=== PATIENT | female | born 1970 | race Caucasian/White ===

== ENCOUNTER 2016-04-27 21:14 | Emergency (ER) | payer BC, OTHER ==
[2016-04-27 21:36] VITALS: RESP 18
--- NOTE | 2016-04-27 22:57 | ED ---
ENT HPI - General Stated complaint: fever,head pain Time Seen by Provider: 04/27/16 22:07 Source: patient, RN notes reviewed Mode of arrival: ambulatory Limitations: no limitations - History of Present Illness Initial comments: Patient is a 45-year-old female with chief complaint of body aches, fever and chills and sinus congestion for approximately 2 days. She reports that her son was diagnosed with flu and she believes that she has it as well. She states that she has been taking Motrin Tylenol and had a dose of Motrin prior to arrival. She reports that she feels very weak and tired. She states that her also has had similar symptoms quite some time. She denies any nausea vomiting or abdominal pain. She denies any headache, changes in vision, chest pain or shortness of breath. - Related Data Previous Rx's Medication Instructions Recorded Orphenadrine [Norflex] 100 mg PO Q12H #20 tablet.er 05/01/15 methylPREDNISolone Dose Pack 4 mg PO DIRECTED #21 package 05/01/15 [Medrol Dose Pack] Benzonatate [Tessalon Perles] 100 mg PO TID PRN #15 capsule 04/27/16 Fluticasone Nasal [place] [Flonase 2 spr EA NOSTRIL DAILY #1 bottle 04/27/16 Nasal [place]] Guaifenesin/Dextromethorphan 1 each PO BID #20 tab.er.12h 04/27/16 [Mucinex Dm ER 1,200-60 mg Tab] Oseltamivir [Tamiflu] 75 mg PO Q12HR #10 cap 04/27/16 Allergies Allergy/AdvReac Type Severity Reaction Status Date / Time codeine Allergy Rash/Hives Verified 04/27/16 21:36 hydromorphone HCl Allergy Rapid Verified 04/27/16 21:36 [From Dilaudid] Heart Rate magnesium Allergy Rapid Verified 04/27/16 21:36 Heart Rate Review of Systems ROS Statement: Those systems with pertinent positive or pertinent negative responses have been documented in the HPI. ROS Other: All systems not noted in ROS Statement are negative. Past Medical History Past Medical History: Asthma History of Any Multi-Drug Resistant Organisms: None Reported Past Surgical History: Section, Tubal Ligation Past Psychological History: Anxiety Smoking Status: Never smoker Past Alcohol Use History: Occasional Past Drug Use History: None Reported General Exam - General Exam Comments Initial Comments: Patient is a 45-year-old well-appearing female. She does appear to have some sinus congestion and watery eyes. Limitations: no limitations General appearance: alert, in no apparent distress Head exam: Present: atraumatic, normocephalic, normal inspection Eye exam: Present: normal appearance, PERRL, EOMI. Absent: scleral icterus, conjunctival injection, periorbital swelling ENT exam: Present: normal exam, mucous membranes moist, TM's normal bilaterally , normal external ear exam. Absent: normal oropharynx (Erythematous oropharynx) Neck exam: Present: normal inspection. Absent: tenderness, meningismus, lymphadenopathy Respiratory exam: Present: normal lung sounds bilaterally. Absent: respiratory distress, wheezes, rales, rhonchi, stridor Cardiovascular Exam: Present: regular rate, normal rhythm, normal heart sounds. Absent: systolic murmur, diastolic murmur, rubs, gallop, clicks GI/Abdominal exam: Present: soft, normal bowel sounds. Absent: distended, tenderness, guarding, rebound, rigid Extremities exam: Present: normal inspection, full ROM, normal capillary refill. Absent: tenderness, pedal edema, joint swelling, calf tenderness Back exam: Present: normal inspection Neurological exam: Present: alert, oriented X3, CN II-XII intact Psychiatric exam: Present: normal affect, normal mood Skin exam: Present: warm, dry, intact, normal color. Absent: rash Course Vital Signs 04/27/16 04/27/16 21:31 22:58 Temperature 99.1 F 99.3 F Pulse Rate 98 78 Respiratory 18 18 Rate Blood Pressure 139/97 119/75 O2 Sat by Pulse 96 100 Oximetry Medical Decision Making - Medical Decision Making Patient is a 45-year-old FEMA 2 days of fevers and body aches. She has a history of sick contacts with her son having positive influenza. Influenza screen was ran on the patient and she is negative. Discussed that she needs to take decongestants and Motrin Tylenol for the next few days. The patient appears to have influenza. I will prescribe the patient Tamiflu, Tessalon Perles for cough, Flonase for nasal congestion as well as Mucinex. Patient is advised to take his medications as prescribed and to rest for the next 3 days. I discussed that she is follow-up with her primary care provider if symptoms continue to persist after the next week. Patient understands the treatment plan will comply. Return parameters were discussed. - Lab Data Lab Results 04/27/16 Range/Units 21:30 Influenza Type A RNA Not Detected (Not Detectd) Influenza Type B (PCR) Not Detected (Not Detectd) Disposition Clinical Impression: Viral syndrome, Upper respiratory infection Disposition: HOME SELF-CARE Condition: Good Instructions: Influenza (ED) Additional Instructions: Patient advised, increase fluids and to take prescriptions as directed. Return to emergency department if any alarming signs or symptoms occur. Prescriptions: Benzonatate [Tessalon Perles] 100 mg PO TID PRN #15 capsule PRN Reason: Cough Fluticasone Nasal [place] [Flonase Nasal [place]] 2 spr EA NOSTRIL DAILY #1 bottle Guaifenesin/Dextromethorphan [Mucinex Dm ER 1,200-60 mg Tab] 1 each PO BID #20 tab.er.12h Oseltamivir [Tamiflu] 75 mg PO Q12HR #10 cap Referrals: Gemrán Hall III, MD [Primary Care Provider] - 1-2 days Time of Disposition: 22:53
[2016-04-27 22:59] VITALS: BP 119/75; PULSE 78; TEMP 99.3
== END 2016-04-27 23:10 | disposition home or self-care (01) ==
LOC: EC 21:14
DX: J06.9 Acute upper respiratory infection, unspecified (principal); Z88.5 Allergy status to narcotic agent; Z88.8 Allergy status to other drugs, medicaments and biological substances
CPT/HCPCS: 87502; 99283

== ENCOUNTER 2016-10-12 18:45 | Emergency (ER) | payer OTHER ==
[2016-10-12] MEDS ORDERED: RX INFO: IV CONTRAST WAS GIVEN 1 EACH MISC MISCELLANE PRN (19:05)
[2016-10-12] MEDS ORDERED: SODIUM CHLORIDE 0.9% 500 ML IV ONE (19:06)
[2016-10-12 19:27] LABS: Basophils # (A) 0.1 k/uL (0-0.2); Basophils % (A) 1 %; CH 26.4; CHCM 30.9; Eosinophils # (A) 0.2 k/uL (0-0.7); Eosinophils % (A) 2 %; HCT 39.8 % (34.0-46.0); HGB 12.8 gm/dL (11.4-16.0); Hypochromasia Slight; Luc # (Auto) 0.17; Luc % (Auto) 2; Lymphocytes # (A) 2.5 k/uL (1.0-4.8); Lymphocytes % (A) 27 %; MCH 27.5 pg (25.0-35.0); MCHC 32.1 g/dL (31.0-37.0); MCV 85.7 fL (80.0-100.0); Mean Platelet Volume 6.8; Monocytes # (A) 0.4 k/uL (0-1.0); Monocytes % (A) 4 %; Neutrophils # (A) 6.2 k/uL (1.3-7.7); Neutrophils % (A) 65 %; RBC 4.65 m/uL (3.80-5.40); RDW 12.8 % (11.5-15.5); WBC 9.5 k/uL (3.8-10.6); WBC (Perox) 9.65
[2016-10-12 19:39] LABS: Amylase 42 U/L (30-110); Anion Gap 10 mmol/L; Blood Urea Nitrogen 11 mg/dL (7-17); Calcium 8.9 mg/dL (8.4-10.2); Carbon Dioxide 23 mmol/L (22-30); Chloride 107 mmol/L (98-107); Glucose 86 mg/dL (74-99); Non-African American GFR(MDRD) >60 (>60 ml/min/1.73 sqM); Sodium 140 mmol/L (137-145)
--- NOTE | 2016-10-12 19:47 | ED ---
ENT HPI - General Chief complaint: ENT Stated complaint: left side of face swollen/vertigo Time Seen by Provider: 10/12/16 18:59 Source: patient, RN notes reviewed Mode of arrival: ambulatory Limitations: no limitations - History of Present Illness Initial comments: 46-year-old female presents emergency Department chief complaint left-sided facial swelling, some facial pain. Patient states has been present over the last 3-4 days. Patient states she feels congested in her left sinus, left ear. She has pains on her left ear and in the left mandible region. She states it' s very tender swollen. She denies any dental pain, sore throat, cough or chest congestion. Denies any shortness of breath. Patient states she has no history of any disorders of the face. Denies any headache at this time. Patient denies fever or chills. - Related Data Home Medications Medication Instructions Recorded Confirmed Cetirizine HCl [Zyrtec] 10 mg PO DAILY 10/12/16 10/12/16 Ibuprofen [Motrin] 200 - 400 mg PO Q6HR PRN 10/12/16 10/12/16 Vitamin B Complex 1 cap PO DAILY 10/12/16 10/12/16 Vitamin C/Biotin [Hair, Skin and 2 tab PO DAILY 10/12/16 10/12/16 Nails] Previous Rx's Medication Instructions Recorded Amoxicillin/Potassium Clav 1 tab PO Q12HR #20 tab 10/12/16 [Augmentin 875-125 Tablet] Ibuprofen [Motrin] 600 mg PO Q8HR PRN #30 tab 10/12/16 Allergies Allergy/AdvReac Type Severity Reaction Status Date / Time codeine Allergy Rash/Hives Verified 10/12/16 19:01 hydromorphone HCl Allergy Rapid Verified 10/12/16 19:01 [From Dilaudid] Heart Rate magnesium Allergy Rapid Verified 10/12/16 19:01 Heart Rate Review of Systems ROS Statement: Those systems with pertinent positive or pertinent negative responses have been documented in the HPI. ROS Other: All systems not noted in ROS Statement are negative. Past Medical History Past Medical History: Asthma History of Any Multi-Drug Resistant Organisms: None Reported Past Surgical History: Section, Tubal Ligation Past Psychological History: Anxiety Smoking Status: Never smoker Past Alcohol Use History: Occasional Past Drug Use History: None Reported General Exam Limitations: no limitations General appearance: alert, in no apparent distress Head exam: Present: atraumatic, normocephalic, normal inspection Eye exam: Present: normal appearance, PERRL, EOMI. Absent: scleral icterus, conjunctival injection, periorbital swelling ENT exam: Present: normal oropharynx, mucous membranes moist, TM's normal bilaterally, normal external ear exam, other (Tenderness in the left preauricular region, left mandible angle with moderate swelling). Absent: normal exam Neck exam: Present: normal inspection, full ROM. Absent: tenderness, meningismus, lymphadenopathy Respiratory exam: Present: normal lung sounds bilaterally. Absent: respiratory distress, wheezes, rales, rhonchi, stridor Cardiovascular Exam: Present: regular rate, normal rhythm, normal heart sounds. Absent: systolic murmur, diastolic murmur, rubs, gallop, clicks Neurological exam: Present: alert, oriented X3, CN II-XII intact, reflexes normal. Absent: motor sensory deficit Skin exam: Present: warm, dry, intact, normal color. Absent: rash Course Vital Signs 10/12/16 10/12/16 18:55 20:15 Temperature 99.3 F Pulse Rate 82 74 Respiratory 20 18 Rate Blood Pressure 138/79 138/64 O2 Sat by Pulse 100 99 Oximetry Medical Decision Making - Medical Decision Making 46-year-old male present emergency from for left sided facial pain and swelling. Patient lab work is unremarkable. Patient CT does show some cervical lymphadenopathy. Patient we placed on Augmentin at this time follow- up with primary care physician for recheck and she is advised that if symptoms do not improve she may need an ultrasound or biopsy. Patient understands all questions were answered return parameters were discussed. - Lab Data Result diagrams: 10/12/16 19:19 10/12/16 19:19 Lab Results 10/12/16 10/12/16 Range/Units 19:19 19:19 WBC 9.5 (3.8-10.6) k/uL RBC 4.65 (3.80-5.40) m/uL Hgb 12.8 (11.4-16.0) gm/dL Hct 39.8 (34.0-46.0) % MCV 85.7 (80.0-100.0) fL MCH 27.5 (25.0-35.0) pg MCHC 32.1 (31.0-37.0) g/dL RDW 12.8 (11.5-15.5) % Plt Count 282 (150-450) k/uL Neutrophils % 65 % Lymphocytes % 27 % Monocytes % 4 % Eosinophils % 2 % Basophils % 1 % Neutrophils # 6.2 (1.3-7.7) k/uL Lymphocytes # 2.5 (1.0-4.8) k/uL Monocytes # 0.4 (0-1.0) k/uL Eosinophils # 0.2 (0-0.7) k/uL Basophils # 0.1 (0-0.2) k/uL Hypochromasia Slight Sodium 140 (137-145) mmol/L Potassium 4.0 (3.5-5.1) mmol/L Chloride 107 (98-107) mmol/L Carbon Dioxide 23 (22-30) mmol/L Anion Gap 10 mmol/L BUN 11 (7-17) mg/dL Creatinine 0.79 (0.52-1.04) mg/dL Est GFR (MDRD) Af Amer >60 (>60 ml/min/1.73 sqM) Est GFR (MDRD) Non-Af >60 (>60 ml/min/1.73 sqM) Glucose 86 (74-99) mg/dL Calcium 8.9 (8.4-10.2) mg/dL Amylase 42 (30-110) U/L Disposition Clinical Impression: Cervical lymphadenopathy Disposition: HOME SELF-CARE Condition: Stable Instructions: Lymphadenopathy (ED) Additional Instructions: Please return to the Emergency Department if symptoms worsen or any other concerns. Prescriptions: Amoxicillin/Potassium Clav [Augmentin 875-125 Tablet] 1 tab PO Q12HR #20 tab Ibuprofen [Motrin] 600 mg PO Q8HR PRN #30 tab PRN Reason: Pain Referrals: Germán Hall III, MD [Primary Care Provider] - 1-2 days Time of Disposition: 20:17
--- NOTE | 2016-10-12 20:05 | CT ---
EXAMINATION TYPE: CT soft tissue neck w con DATE OF EXAM: 10/12/2016 7:56 PM COMPARISON: NONE HISTORY: Left jaw pain radiating to behind left ear x 3-[address] DLP: 431.80 mGycm Automated exposure control for dose reduction was used. CONTRAST: CT scan of the neck is performed following with IV Contrast, patient injected with 100 mL of Omnipaqu e 300. Axial images are obtained, coronal and sagittal reformatted images are reviewed. FINDINGS: There is normal branching pattern of the great vessels on the aortic arch. Thyroid gland appears norm al. There is normal contrast opacification of the jugular veins. Epiglottis appears normal. Visualize d trachea appears normal. There is no evidence of a pharyngeal mass. The submandibular salivary gland s are symmetric. Parotid glands are symmetric. The mandible is intact. There is normal aeration of th e paranasal sinuses. There is normal aeration of the mastoid sinuses. External auditory canals appear normal. There are multiple posterior triangle enlarged cervical lymph nodes on the left side. There is also an enlarged left parotid lymph node that measures 12 mm. IMPRESSION: There is left-sided cervical lymphadenopathy that is nonspecific.
[2016-10-12 20:15] VITALS: BP 138/64; PULSE 74; RESP 18
[2016-10-12] MEDS ORDERED: IBUPROFEN 600 MG TAB PO STA (20:16)
[2016-10-12] MEDS ORDERED: AMOXIC-POT CLAV 875-125MG 1 EACH TAB PO STA (20:16)
[2016-10-12 20:17] VITALS: TEMP 98.6
== END 2016-10-12 20:33 | disposition home or self-care (01) ==
LOC: EC 18:45
DX: R59.0 Localized enlarged lymph nodes (principal); R22.0 Localized swelling, mass and lump, head; R51 Headache; H92.02 Otalgia, left ear; R09.81 Nasal congestion; H93.8X2 Other specified disorders of left ear; Z88.5 Allergy status to narcotic agent; Z88.8 Allergy status to other drugs, medicaments and biological substances; Z79.899 Other long term (current) drug therapy
CPT/HCPCS: 36415; 80048; 82150; 85025; 70491; 99284; 96360; Q9967

== ENCOUNTER → 2018-01-09 | Outpatient (CLI) | payer OTHER ==
--- NOTE | 2018-01-10 14:59 | MM ---
Reason for exam: screening (asymptomatic). Last mammogram was performed 4 years ago. History: Took hormonal contraceptives for 5 years. Physical Findings: A clinical breast exam by your physician is recommended on an annual basis and results should be correlated with mammographic findings. MG 3D Screening Mammo W/Cad Bilateral CC and MLO view(s) were taken. Prior study comparison: December 30, 2013, mammogram, performed at [facility]. There are scattered fibroglandular densities. There is no discrete abnormality. No significant changes when compared with prior studies. ASSESSMENT: Negative, BI-RAD 1 RECOMMENDATION: Routine screening mammogram of both breasts in 1 year.
== END | disposition home or self-care (01) ==
LOC: RADMAMWWP 08:57
PROVIDERS: ATTEND Obstetrics & Gynecology
DX: Z12.31 Encounter for screening mammogram for malignant neoplasm of breast (principal)
CPT/HCPCS: 77063; 77067

== ENCOUNTER 2018-02-09 06:14 | Emergency (ER) | payer OTHER ==
[2018-02-09 06:30] VITALS: TEMP 98.2
[2018-02-09] MEDS ORDERED: SODIUM CHLORIDE 0.9% 1,000 ML IV STA (07:34)
[2018-02-09] MEDS ORDERED: ALPRAZolam 0.5 MG TAB PO STA (07:35)
--- NOTE | 2018-02-09 07:37 | ED ---
General Adult HPI - General Chief complaint: Arrhythmia/Palpitations Stated complaint: palpitations,lightheaded Source: patient Mode of arrival: ambulatory Limitations: no limitations - History of Present Illness Initial comments: Dictation was produced using [employer] dictation software. please excuse any grammatical, word or spelling errors. Chief Complaint: 47-year-old female past medical history of asthma, TIA, migraines presents with palpitations 2 days. History of Present Illness: He is a 47-year-old female. She states she is highly anxious person. Patient has been feeling reflux type symptoms over the past 2 days. Patient also complaining of vague discomfort in her chest. Patient denies any history of blood clots. She is worried that she is suffering from life-threatening disease. Patient feels really anxious about her symptoms. Patient has a history of blood clots. Denies any pain in her lower extremities. Patient is on testosterone cream for hormone replacement therapy. Patient denies any lower extremity swelling. The ROS documented in this emergency department record has been reviewed and confirmed by me. Those systems with pertinent positive or negative responses have been documented in the HPI. All other systems are other negative and/or noncontributory. - Related Data Home Medications Medication Instructions Recorded Confirmed Fexofenadine HCl [Lauren Allergy] 180 mg PO DAILY 02/09/18 02/09/18 Mylanta 10 ml PO Q4H PRN 02/09/18 02/09/18 Testosterone Cream 2mg/Gram 2 pump TOPICAL HS 02/09/18 02/09/18 Previous Rx's Medication Instructions Recorded ALPRAZolam [Xanax] 0.25 mg PO Q8HR PRN 3 Days #9 tab 02/09/18 Allergies Allergy/AdvReac Type Severity Reaction Status Date / Time codeine Allergy Rash/Hives Verified 02/09/18 07:43 hydrocodone [From Vicodin] AdvReac Hallucinati Verified 02/09/18 07:43 ons hydromorphone HCl AdvReac Rapid Verified 02/09/18 07:43 [From Dilaudid] Heart Rate magnesium AdvReac Rapid Verified 02/09/18 07:43 Heart Rate Review of Systems ROS Statement: Those systems with pertinent positive or pertinent negative responses have been documented in the HPI. ROS Other: All systems not noted in ROS Statement are negative. 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 states she has a hard time coming out of an[place], has had PONV Past Psychological History: Anxiety Smoking Status: Never smoker Past Alcohol Use History: Occasional Past Drug Use History: None Reported - Past Family History Father Family Medical History: Coronary Artery Disease (CAD) General Exam - General Exam Comments Initial Comments: PHYSICAL EXAM: General Impression: Alert and oriented x3, not in acute distress HEENT: Normocephalic atraumatic, extra-ocular movements intact, pupils equal and reactive to light bilaterally, mucous membranes moist. Cardiovascular: Heart regular rate and rhythm, S1&S2 audible, no murmurs, rubs or gallops Chest: Lungs clear to auscultation bilaterally, no rhonchi, no wheeze, no rales Abdomen: Bowel sounds present, abdomen soft, non-tender, non-distended, no organomegaly Musculoskeletal: Pulses present and equal in all extremities, no peripheral edema Motor: Power 5/5 bilaterally, no focal deficits noted Neurological: CN II-XII grossly intact, no focal motor or sensory deficits noted Skin: Intact with no visualized rashes Psych: Anxious Limitations: no limitations Course Vital Signs 02/09/18 02/09/18 02/09/18 06:17 08:08 08:59 Temperature 98.2 F Pulse Rate 122 H 89 Pulse Rate [ 108 H Valve Tester ] Respiratory 20 16 Rate Blood Pressure 149/88 129/82 O2 Sat by Pulse 98 98 Oximetry Medical Decision Making - Medical Decision Making ED course: 47-year-old female with chief complaint of palpitations. Signs upon arrival shows heart rate of 122, rest of vital signs within acceptable limits.Laboratory evaluation obtained. CBC unremarkable. Coag panel unremarkable. D-dimer is 0.30. Very low clinical suspicion of PE at this time. Metabolic panel is unremarkable. Cardiac enzymes are negative. Chest x- ray shows acute processes. Patient was observed on a monitor for several hours. Patient was given anxiolytic. Patient reevaluated improvement of symptoms. Heart rate is 89. More history was obtained from patient and patient 's significant other who reports that she has been very anxious recently after the of a family member. Patient's clinical presentation consistent with anxiety reaction. Patient given few pills of anxiolytic medication to take sparingly. She is advised follow-up with primary care physician for further management of her anxiety. EKG interpretation: Ventricular rate 122, sinus tachycardia,. Interval 152, care is 86, QTC 436. No VA prolongation, no QTC prolongation, no ST or T-wave changes noted. Overall, this EKG is unremarkable - Lab Data Result diagrams: 02/09/18 06:37 02/09/18 06:37 Lab Results 02/09/18 02/09/18 02/09/18 Range/Units 06:37 06:37 06:37 WBC 10.6 (3.8-10.6) k/uL RBC 4.84 (3.80-5.40) m/uL Hgb 13.1 (11.4-16.0) gm/dL Hct 41.5 (34.0-46.0) % MCV 85.6 (80.0-100.0) fL MCH 27.0 (25.0-35.0) pg MCHC 31.5 (31.0-37.0) g/dL RDW 13.6 (11.5-15.5) % Plt Count 305 (150-450) k/uL Neutrophils % 80 % Lymphocytes % 16 % Monocytes % 2 % Eosinophils % 1 % Basophils % 0 % Neutrophils # 8.5 H (1.3-7.7) k/uL Lymphocytes # 1.7 (1.0-4.8) k/uL Monocytes # 0.3 (0-1.0) k/uL Eosinophils # 0.1 (0-0.7) k/uL Basophils # 0.0 (0-0.2) k/uL Hypochromasia Slight PT (9.0-12.0) sec INR (<1.2) APTT (22.0-30.0) sec D-Dimer (<0.60) mg/L FEU Sodium 144 (137-145) mmol/L Potassium 3.8 (3.5-5.1) mmol/L Chloride 107 (98-107) mmol/L Carbon Dioxide 25 (22-30) mmol/L Anion Gap 12 mmol/L BUN 10 (7-17) mg/dL Creatinine 0.69 (0.52-1.04) mg/dL Est GFR (CKD-EPI)AfAm >90 (>60 ml/min/1.73 sqM) Est GFR (CKD-EPI)NonAf >90 (>60 ml/min/1.73 sqM) Glucose 123 H (74-99) mg/dL Calcium 9.4 (8.4-10.2) mg/dL Magnesium 2.2 (1.6-2.3) mg/dL Total Bilirubin 0.6 (0.2-1.3) mg/dL AST 17 (14-36) U/L ALT 18 (9-52) U/L Alkaline Phosphatase 106 (38-126) U/L Total Creatine Kinase 76 (30-135) U/L CK-MB (CK-2) 0.5 (0.0-2.4) ng/mL CK-MB (CK-2) Rel Index 0.7 Troponin I <0.012 (0.000-0.034) ng/mL Total Protein 8.0 (6.3-8.2) g/dL Albumin 4.4 (3.5-5.0) g/dL TSH 1.230 (0.465-4.680) mIU/L 02/09/18 Range/Units 06:37 WBC (3.8-10.6) k/uL RBC (3.80-5.40) m/uL Hgb (11.4-16.0) gm/dL Hct (34.0-46.0) % MCV (80.0-100.0) fL MCH (25.0-35.0) pg MCHC (31.0-37.0) g/dL RDW (11.5-15.5) % Plt Count (150-450) k/uL Neutrophils % % Lymphocytes % % Monocytes % % Eosinophils % % Basophils % % Neutrophils # (1.3-7.7) k/uL Lymphocytes # (1.0-4.8) k/uL Monocytes # (0-1.0) k/uL Eosinophils # (0-0.7) k/uL Basophils # (0-0.2) k/uL Hypochromasia PT 10.2 (9.0-12.0) sec INR 0.9 (<1.2) APTT 24.7 (22.0-30.0) sec D-Dimer 0.30 (<0.60) mg/L FEU Sodium (137-145) mmol/L Potassium (3.5-5.1) mmol/L Chloride (98-107) mmol/L Carbon Dioxide (22-30) mmol/L Anion Gap mmol/L BUN (7-17) mg/dL Creatinine (0.52-1.04) mg/dL Est GFR (CKD-EPI)AfAm (>60 ml/min/1.73 sqM) Est GFR (CKD-EPI)NonAf (>60 ml/min/1.73 sqM) Glucose (74-99) mg/dL Calcium (8.4-10.2) mg/dL Magnesium (1.6-2.3) mg/dL Total Bilirubin (0.2-1.3) mg/dL AST (14-36) U/L ALT (9-52) U/L Alkaline Phosphatase (38-126) U/L Total Creatine Kinase (30-135) U/L CK-MB (CK-2) (0.0-2.4) ng/mL CK-MB (CK-2) Rel Index Troponin I (0.000-0.034) ng/mL Total Protein (6.3-8.2) g/dL Albumin (3.5-5.0) g/dL TSH (0.465-4.680) mIU/L Disposition Clinical Impression: Anxiety Disposition: HOME SELF-CARE Condition: Good Instructions: Heart Palpitations (ED) Prescriptions: ALPRAZolam [Xanax] 0.25 mg PO Q8HR PRN 3 Days #9 tab PRN Reason: Anxiety Is patient prescribed a controlled substance at d/c from ED?: Yes If prescribed controlled substance>3 days was MAPS reviewed?: Prescribed <3 Days Referrals: Germán Hall III, MD [Primary Care Provider] - 1-2 days Time of Disposition: 09:33
[2018-02-09 08:01] LABS: Basophils % (A) 0 %; Eosinophils # (A) 0.1 k/uL (0-0.7); Eosinophils % (A) 1 %; HCT 41.5 % (34.0-46.0); HGB 13.1 gm/dL (11.4-16.0); Hypochromasia Slight; Lymphocytes # (A) 1.7 k/uL (1.0-4.8); Lymphocytes % (A) 16 %; MCHC 31.5 g/dL (31.0-37.0); MCV 85.6 fL (80.0-100.0); Mean Platelet Volume 6.8; Monocytes # (A) 0.3 k/uL (0-1.0); Monocytes % (A) 2 %; Neutrophils # (A) 8.5 k/uL (1.3-7.7); Neutrophils % (A) 80 %; Platelet Count 305 k/uL (150-450); RBC 4.84 m/uL (3.80-5.40); RDW 13.6 % (11.5-15.5); WBC 10.6 k/uL (3.8-10.6)
[2018-02-09 08:09] LABS: D-Dimer 0.3 mg/L FEU (<0.60); INR 0.9 (<1.2); Partial Thromboplastin Time 24.7 sec (22.0-30.0); Prothrombin Time 10.2 sec (9.0-12.0)
[2018-02-09 08:10] LABS: ALT 18 U/L (9-52); AST 17 U/L (14-36); Albumin 4.4 g/dL (3.5-5.0); Alkaline Phosphatase 106 U/L (38-126); Anion Gap 12 mmol/L; Blood Urea Nitrogen 10 mg/dL (7-17); Calcium 9.4 mg/dL (8.4-10.2); Carbon Dioxide 25 mmol/L (22-30); Chloride 107 mmol/L (98-107); Glucose 123 mg/dL (74-99); Magnesium 2.2 mg/dL (1.6-2.3); Potassium 3.8 mmol/L (3.5-5.1); Sodium 144 mmol/L (137-145); Total Bilirubin 0.6 mg/dL (0.2-1.3)
[2018-02-09 08:25] LABS: Creatine Kinase 76 U/L (30-135)
--- NOTE | 2018-02-09 08:26 | XR ---
EXAMINATION TYPE: XR chest 2V DATE OF EXAM: 02/09/2018 COMPARISON: Chest x-ray November 20, 2016. HISTORY: Shortness of breath and dysrhythmia TECHNIQUE: Frontal and lateral views of the chest are obtained. FINDINGS: There is no focal air space opacity, pleural effusion, or pneumothorax seen. The cardiac silhouette size is more prominent and now mildly enlarged. Overlying EKG leads are redemonstrated. T he osseous structures are intact. IMPRESSION: Mild cardiomegaly without acute pulmonary process.
[2018-02-09 08:38] LABS: Creatine Kinase MB 0.5 ng/mL (0.0-2.4); Troponin I <0.012 ng/mL (0.000-0.034)
[2018-02-09 09:00] VITALS: BP 129/82; PULSE 89; RESP 16
== END 2018-02-09 09:48 | disposition home or self-care (01) ==
LOC: EC 06:14
DX: F41.9 Anxiety disorder, unspecified (principal); R00.0 Tachycardia, unspecified; Z63.4 Disappearance and death of family member; Z88.5 Allergy status to narcotic agent; Z88.8 Allergy status to other drugs, medicaments and biological substances; Z79.890 Hormone replacement therapy; Z79.899 Other long term (current) drug therapy; Z82.49 Family history of ischemic heart disease and other diseases of the circulatory system
CPT/HCPCS: 36415; 71046; 80053; 82550; 82553; 83735; 84443; 84484; 85025; 85379; 85610; 85730; 96360; 99285

== ENCOUNTER 2018-05-23 17:04 | Emergency (ER) | payer OTHER ==
[2018-05-23 17:13] VITALS: RESP 16; TEMP 98.9
--- NOTE | 2018-05-23 18:19 | ED ---
General Adult HPI - General Chief complaint: Neuro Symptoms/Deficit Stated complaint: lt sided facial numbness, tingling Time Seen by Provider: 05/23/18 17:41 Source: patient Mode of arrival: ambulatory Limitations: no limitations - History of Present Illness Initial comments: 47 year-old female patient presents to the emergency department today for eval uation of numbness and tingling to the left side of her face and her left hand. Patient states that she has had left sided neck pain for the last week. Patient states it has worsened over the last 2 days. Patient states for the last 3 days she has had tingling to the fingers on the left hand. Patient states that the tingling to her face started last night. Patient states she did apply heating pad to the left side of the face and the neck today which did improve the numbness and tingling. She denies any headache and states she was having some blurred vision and muffled hearing in the left ear. She denies any chest pain or shortness of breath. Denies any weakness to her extremities. Denies any difficulty with speech or ambulation. Patient's that she does have a history of anxiety, did take a Xanax to see if it would help, it did not. Patient denies any recent rash, fever, chills, shortness breath, chest pain, abdominal pain, nausea, vomiting, diarrhea, constipation, back pain, dizziness, weakness, hematuria, dysuria, urinary urgency, urinary frequency, or any other complaints. - Related Data Home Medications Medication Instructions Recorded Confirmed Acetaminophen Tab [Tylenol] 500 mg PO Q12HR PRN 05/23/18 05/23/18 Cholecalciferol [Vitamin D3] 1,000 unit PO DAILY 05/23/18 05/23/18 Ibuprofen [Motrin Ib] 400 mg PO Q8H 05/23/18 05/23/18 Previous Rx's Medication Instructions Recorded ALPRAZolam [Xanax] 0.25 mg PO Q8HR PRN 3 Days #9 tab 02/09/18 Ibuprofen [Motrin] 600 mg PO Q8HR PRN #30 tab 05/23/18 predniSONE 50 mg PO DAILY #5 tablet 05/23/18 Allergies Allergy/AdvReac Type Severity Reaction Status Date / Time codeine Allergy Rash/Hives Verified 05/23/18 17:13 Latex, Natural Rubber Allergy Rash/Hives Verified 05/23/18 18:12 Sulfa (Sulfonamide Allergy Rapid Verified 05/23/18 18:10 Antibiotics) Heart Rate hydrocodone [From Vicodin] AdvReac Hallucinati Verified 05/23/18 17:13 ons hydromorphone HCl AdvReac Rapid Verified 05/23/18 17:13 [From Dilaudid] Heart Rate magnesium AdvReac Rapid Verified 05/23/18 17:13 Heart Rate Review of Systems ROS Statement: Those systems with pertinent positive or pertinent negative responses have been documented in the HPI. ROS Other: All systems not noted in ROS Statement are negative. 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 states she has a hard time coming out of anesethia, has had PONV Past Psychological History: Anxiety Smoking Status: Never smoker Past Alcohol Use History: Occasional Past Drug Use History: None Reported - Past Family History Father Family Medical History: Coronary Artery Disease (CAD) General Exam Limitations: no limitations General appearance: alert, in no apparent distress, other (Physical well- developed, well-nourished adult female patient in no acute distress. Vital signs upon presentation are temperature 98.9, pulse 104, respirations 16, blood pressure 140/90, pulse ox 98% on room air.) Eye exam: Present: normal appearance, PERRL, EOMI. Absent: scleral icterus, conjunctival injection, nystagmus, periorbital swelling ENT exam: Present: normal exam, normal oropharynx, mucous membranes moist Respiratory exam: Present: normal lung sounds bilaterally. Absent: respiratory distress, wheezes, rales, rhonchi, stridor Cardiovascular Exam: Present: regular rate, normal rhythm, normal heart sounds. Absent: systolic murmur, diastolic murmur, rubs, gallop, clicks GI/Abdominal exam: Present: soft, normal bowel sounds. Absent: distended, tenderness, guarding, rebound, rigid Extremities exam: Present: normal inspection, full ROM, normal capillary refill, other (Skin to the extremities is pink, warm, dry. Cap refills less than 3 seconds. Radial pulses 2+ and equal bilaterally.). Absent: tenderness, pedal edema, joint swelling, calf tenderness Neurological exam: Present: alert, oriented X3, CN II-XII intact Expanded Speech: Present: fluid speech Cranial nerves: EOM's Intact: Normal, Tongue Deviation: Normal, Nystagmus: Normal, Facial Sensation: Normal Upper motor neuron: Pronator Drift: Normal Sensory exam: Upper Extremity Light Touch: Normal Motor strength exam: RUE: 5, LUE: 5, RLE: 5, LLE: 5 Psychiatric exam: Present: normal affect, normal mood Skin exam: Present: warm, dry, intact, normal color. Absent: rash Course Vital Signs 05/23/18 05/23/18 17:11 19:20 Temperature 98.9 F Pulse Rate 104 H 86 Respiratory 16 Rate Blood Pressure 140/90 140/91 O2 Sat by Pulse 98 97 Oximetry EKG Findings - EKG Comments: EKG Findings:: EKG obtained at 1828 shows normal sinus rhythm with a ventricular rate of 86, VA interval 150, QRS duration 92, QT 350, QTC 418. No evidence of ST elevation or depression. Medical Decision Making - Medical Decision Making 47 old female patient presents to emergency department today for evaluation of numbness and tingling to the left side of her face and all fingers on her left hand. Physical examination is unremarkable. She is neurologically intact no focal deficits. NIH is 0. EKG showed normal sinus rhythm. CT brain C-spine was performed and showed no evidence of acute abnormalities. Labs reviewed and are unremarkable. She'll be discharged home at this time follow-up with her primary care physician for recheck in 1-2 days. Return parameters were discussed in detail. She verbalizes understanding and agrees with this plan. - Lab Data Result diagrams: 05/23/18 18:15 05/23/18 18:15 Lab Results 05/23/18 05/23/18 05/23/18 Range/Units 18:15 18:15 18:15 WBC 9.2 (3.8-10.6) k/uL RBC 4.62 (3.80-5.40) m/uL Hgb 11.9 (11.4-16.0) gm/dL Hct 38.2 (34.0-46.0) % MCV 82.6 (80.0-100.0) fL MCH 25.8 (25.0-35.0) pg MCHC 31.2 (31.0-37.0) g/dL RDW 13.2 (11.5-15.5) % Plt Count 314 (150-450) k/uL Neutrophils % 70 % Lymphocytes % 24 % Monocytes % 4 % Eosinophils % 1 % Basophils % 0 % Neutrophils # 6.4 (1.3-7.7) k/uL Lymphocytes # 2.2 (1.0-4.8) k/uL Monocytes # 0.3 (0-1.0) k/uL Eosinophils # 0.1 (0-0.7) k/uL Basophils # 0.0 (0-0.2) k/uL Hypochromasia Moderate PT 10.6 (9.0-12.0) sec INR 1.0 (<1.2) APTT 23.8 (22.0-30.0) sec Sodium 141 (137-145) mmol/L Potassium 4.2 (3.5-5.1) mmol/L Chloride 106 (98-107) mmol/L Carbon Dioxide 28 (22-30) mmol/L Anion Gap 7 mmol/L BUN 9 (7-17) mg/dL Creatinine 0.94 (0.52-1.04) mg/dL Est GFR (CKD-EPI)AfAm 84 (>60 ml/min/1.73 sqM) Est GFR (CKD-EPI)NonAf 73 (>60 ml/min/1.73 sqM) Glucose 99 (74-99) mg/dL Calcium 9.4 (8.4-10.2) mg/dL Total Bilirubin 0.3 (0.2-1.3) mg/dL AST 21 (14-36) U/L ALT 31 (9-52) U/L Alkaline Phosphatase 107 (38-126) U/L Troponin I (0.000-0.034) ng/mL Total Protein 7.5 (6.3-8.2) g/dL Albumin 4.3 (3.5-5.0) g/dL 05/23/18 Range/Units 18:15 WBC (3.8-10.6) k/uL RBC (3.80-5.40) m/uL Hgb (11.4-16.0) gm/dL Hct (34.0-46.0) % MCV (80.0-100.0) fL MCH (25.0-35.0) pg MCHC (31.0-37.0) g/dL RDW (11.5-15.5) % Plt Count (150-450) k/uL Neutrophils % % Lymphocytes % % Monocytes % % Eosinophils % % Basophils % % Neutrophils # (1.3-7.7) k/uL Lymphocytes # (1.0-4.8) k/uL Monocytes # (0-1.0) k/uL Eosinophils # (0-0.7) k/uL Basophils # (0-0.2) k/uL Hypochromasia PT (9.0-12.0) sec INR (<1.2) APTT (22.0-30.0) sec Sodium (137-145) mmol/L Potassium (3.5-5.1) mmol/L Chloride (98-107) mmol/L Carbon Dioxide (22-30) mmol/L Anion Gap mmol/L BUN (7-17) mg/dL Creatinine (0.52-1.04) mg/dL Est GFR (CKD-EPI)AfAm (>60 ml/min/1.73 sqM) Est GFR (CKD-EPI)NonAf (>60 ml/min/1.73 sqM) Glucose (74-99) mg/dL Calcium (8.4-10.2) mg/dL Total Bilirubin (0.2-1.3) mg/dL AST (14-36) U/L ALT (9-52) U/L Alkaline Phosphatase (38-126) U/L Troponin I <0.012 (0.000-0.034) ng/mL Total Protein (6.3-8.2) g/dL Albumin (3.5-5.0) g/dL - Radiology Data Radiology results: report reviewed, image reviewed CT brain and C-spine was performed without contrast. Report was reviewed in its entirety. Impression by Dr. Solano shows negative computed tomography scan of the cervical spine. Negative computed tomography scan of the brain. Brain is unchanged compared to old exam. Disposition Clinical Impression: Paresthesia Disposition: HOME SELF-CARE Condition: Good Instructions (If sedation given, give patient instructions): Paresthesia (ED) Additional Instructions: Take medications as directed. Follow-up through primary care physician for further evaluation and possible referral to neurology orthopedics. Return to the emergency department immediately for any new, worsening, or concerning symptoms. Prescriptions: Ibuprofen [Motrin] 600 mg PO Q8HR PRN #30 tab PRN Reason: Pain predniSONE 50 mg PO DAILY #5 tablet Is patient prescribed a controlled substance at d/c from ED?: No Referrals: Germán Hall III, MD [Primary Care Provider] - 1-2 days Time of Disposition: 19:41
[2018-05-23 18:32] LABS: Basophils % (A) 0 %; Eosinophils # (A) 0.1 k/uL (0-0.7); Eosinophils % (A) 1 %; HCT 38.2 % (34.0-46.0); HGB 11.9 gm/dL (11.4-16.0); Hypochromasia Moderate; Lymphocytes # (A) 2.2 k/uL (1.0-4.8); Lymphocytes % (A) 24 %; MCH 25.8 pg (25.0-35.0); MCHC 31.2 g/dL (31.0-37.0); MCV 82.6 fL (80.0-100.0); Monocytes # (A) 0.3 k/uL (0-1.0); Monocytes % (A) 4 %; Neutrophils # (A) 6.4 k/uL (1.3-7.7); Neutrophils % (A) 70 %; Platelet Count 314 k/uL (150-450); RBC 4.62 m/uL (3.80-5.40); RDW 13.2 % (11.5-15.5); WBC 9.2 k/uL (3.8-10.6)
[2018-05-23 18:37] LABS: Partial Thromboplastin Time 23.8 sec (22.0-30.0); Prothrombin Time 10.6 sec (9.0-12.0)
[2018-05-23 18:45] LABS: Albumin 4.3 g/dL (3.5-5.0); Calcium 9.4 mg/dL (8.4-10.2); Potassium 4.2 mmol/L (3.5-5.1); Total Bilirubin 0.3 mg/dL (0.2-1.3); Total Protein 7.5 g/dL (6.3-8.2)
--- NOTE | 2018-05-23 18:57 | CT ---
EXAMINATION TYPE: CT brain paulo wo con DATE OF EXAM: 05/23/2018 COMPARISON: CT brain 03/11/2014 HISTORY: Left side neck/facial pain and numbness. CT DLP: 1338.6 mGycm Automated exposure control for dose reduction was used. TECHNIQUE: CT scan of the head and cervical spine are performed without contrast. FINDINGS: Ventricles and sulci appear normal. There is no mass effect nor midline shift. There is n o sign of intracranial hemorrhage. The calvarium appears intact. The cervical vertebra have fairly normal spacing and alignment. Posterior elements are intact. Skull base is intact. Facet joints are intact. There is minor spurring in the facet joints. IMPRESSION: Negative CT scan of the cervical spine. Negative CT scan of the brain. Brain unchanged compared to old exam.
[2018-05-23 19:25] VITALS: BP 140/91; PULSE 86
[2018-05-23] MEDS ORDERED: IBUPROFEN 600 MG STARTER PACK 4 TAB BTL PO STA (19:39)
== END 2018-05-23 19:58 | disposition home or self-care (01) ==
LOC: EC 17:04
DX: R20.2 Paresthesia of skin (principal); R20.0 Anesthesia of skin; M54.2 Cervicalgia; Z88.5 Allergy status to narcotic agent; Z88.2 Allergy status to sulfonamides; Z91.040 Latex allergy status; Z88.6 Allergy status to analgesic agent; Z91.048 Other nonmedicinal substance allergy status; Z91.09 Other allergy status, other than to drugs and biological substances; Z86.73 Personal history of transient ischemic attack (TIA), and cerebral infarction without residual deficits
CPT/HCPCS: 36415; 70450; 72125; 80053; 84484; 85025; 85610; 85730; 99284

== ENCOUNTER → 2018-11-26 | Outpatient (CLI) | payer OTHER ==
--- NOTE | 2018-11-26 14:02 | XR ---
EXAMINATION TYPE: XR shoulder complete LT DATE OF EXAM: 11/26/2018 COMPARISON: NONE HISTORY: Pain TECHNIQUE: Shoulder examined in 3 views FINDINGS: The humeral head articulates with the glenoid. The acromio-clavicular junction is normal. No acute fractures or dislocations are evident. A follow up study can be performed 7-10 days from acute trauma for continued pain. IMPRESSION: 1. Normal review left Shoulder
--- NOTE | 2018-11-26 14:02 | XR ---
EXAMINATION TYPE: XR lumbar spine 2 or 3V DATE OF EXAM: 11/26/2018 COMPARISON: None HISTORY: M [age] low back pain TECHNIQUE: 3 view lumbar spine FINDINGS: 5 lumbar type vertebral bodies. The pedicles are intact. Disc heights are preserved. Verteb ral body heights are preserved. Pedicles are intact. IMPRESSION: 1. Normal three-view lumbar spine
== END ==
LOC: RADXRMAIN 11:08
PROVIDERS: ATTEND Family Medicine
DX: M54.5 Low back pain (principal); M25.512 Pain in left shoulder
CPT/HCPCS: 72100

== ENCOUNTER → 2019-10-29 | Outpatient (CLI) | payer OTHER ==
--- NOTE | 2019-10-31 14:14 | MM ---
Reason for exam: screening (asymptomatic). Last mammogram was performed 1 year and 10 months ago. History: Took hormonal contraceptives for 5 years. Physical Findings: A clinical breast exam by your physician is recommended on an annual basis and results should be correlated with mammographic findings. MG 3D Screening Mammo W/Cad Bilateral CC and MLO view(s) were taken. Prior study comparison: January 09, 2018, bilateral MG 3d screening mammo w/cad. December 30, 2013, mammogram, performed at [facility]. There are scattered fibroglandular densities. No significant changes when compared with prior studies. ASSESSMENT: Benign, BI-RAD 2 RECOMMENDATION: Routine screening mammogram of both breasts in 1 year.
== END | disposition home or self-care (01) ==
LOC: RADMAMWWP 12:46
PROVIDERS: ATTEND Family Medicine
DX: Z12.31 Encounter for screening mammogram for malignant neoplasm of breast (principal)
CPT/HCPCS: 77063; 77067

== ENCOUNTER → 2019-11-14 | Outpatient (CLI) | payer OTHER ==
--- NOTE | 2019-11-14 11:25 | US ---
EXAMINATION TYPE: US pelvis complete transvag DATE OF EXAM: 11/14/2019 COMPARISON: NONE CLINICAL HISTORY: N92.6 IRREG MENSES. irregular menses, left pelvic pain. tubal ligation TECHNIQUE: Transvaginal (TV) and Transabdominal (TA) . Transabdominal sonographic images of the pel vis were acquired. Transvaginal sonographic images were medically necessary to better assess the fol lowing anatomy: ovaries Date of LMP: 10/18/19 EXAM MEASUREMENTS: Uterus: 14.0 x 5.0 x 6.7 cm Endometrial Stripe: 0.3 cm Right Ovary: unable to visualize 1. Uterus: Anteverted heterogeneous 2. Endometrium: appears wnl as visualized 3. Right Ovary: Obscured by overlying bowel gas 4. Left Ovary/left adnexa: cystic area left adnexa, possibly within left ovary, unable to visualize any normal ovarian tissue = 2.2 x 2.1 x 1.9cm 5. Right Adnexa: appears wnl 6. Posterior cul-de-sac: wnl IMPRESSION: Probable functional left ovarian cyst which can be confirmed with follow-up study in 6 weeks. [facility] uterine myometrial heterogeneity.
--- NOTE | 2019-11-14 12:13 | XR ---
EXAMINATION TYPE: XR lumbar spine 2 or 3V DATE OF EXAM: 11/14/2019 COMPARISON: 11/26/2018 HISTORY: Low back pain sciatica TECHNIQUE: Three-view lumbar spine FINDINGS: There 5 lumbar-type vertebral bodies. Pedicles are intact. Disc heights are preserved. Vert ebral body heights are preserved. Alignment is normal. IMPRESSION: 1. Normal three-view lumbar spine
== END | disposition home or self-care (01) ==
LOC: RADUSWWP 10:43
PROVIDERS: ATTEND Family Medicine
DX: M54.32 Sciatica, left side (principal); N92.6 Irregular menstruation, unspecified
CPT/HCPCS: 72100; 76830; 76856

== ENCOUNTER 2020-10-07 08:15 | Emergency (ER) | payer OTHER ==
[2020-10-07 08:26] VITALS: BP 138/82; PULSE 93; RESP 18; TEMP 97.6
[2020-10-07] MEDS ORDERED: diphenhydrAMINE 50 MG CAP PO STA (08:53)
[2020-10-07] MEDS ORDERED: methylPREDNISolone SOD SUCCI 125 MG/2 ML VIAL IM ONE (08:53)
--- NOTE | 2020-10-07 09:08 | ED ---
General Adult HPI - General Chief complaint: ENT Stated complaint: tongue & throat swelling Time Seen by Provider: 10/07/20 08:40 Source: patient, family Mode of arrival: ambulatory Limitations: no limitations - History of Present Illness Initial comments: Patient is a 50-year-old female with history of anxiety, presenting to emergency Department with complaints of feeling like her throat is swollen. Patient states yesterday she is sprayed an insect repellant inside the house about 8 PM. She states she went to bed, woke up at about 6 AM feeling like her tongue was swollen. She states she tried drinking some water and felt that it was hard to swallow the water. She denies any pain or worse throat, no scratchiness. She has been dealing with left sided dental pain over the past week. She did take an ibuprofen at about 1 AM put a heating pad on. She denies any fevers or chills, she does not take any other oral medications except for multivitamins. She denies any new foods or drinks. She was unsure if these two things are related or not. She denies any difficulty in breathing, no chest pain or shortness of breath. She has no further complaints at this time. - Related Data Home Medications Medication Instructions Recorded Confirmed Acetaminophen Tab [Tylenol] 500 mg PO Q12HR PRN 05/23/18 05/23/18 Cholecalciferol [Vitamin D3] 1,000 unit PO DAILY 05/23/18 05/23/18 Ibuprofen [Motrin Ib] 400 mg PO Q8H 05/23/18 05/23/18 Previous Rx's Medication Instructions Recorded ALPRAZolam [Xanax] 0.25 mg PO Q8HR PRN 3 Days #9 tab 02/09/18 Ibuprofen [Motrin] 600 mg PO Q8HR PRN #30 tab 05/23/18 predniSONE 50 mg PO DAILY #5 tablet 05/23/18 Penicillin V Potassium [Pen Vee K] 500 mg PO QID 5 Days #20 tablet 10/07/20 predniSONE [Deltasone] 20 mg PO DAILY #5 tab 10/07/20 Allergies Allergy/AdvReac Type Severity Reaction Status Date / Time codeine Allergy Rash/Hives Verified 10/07/20 08:26 Latex, Natural Rubber Allergy Rash/Hives Verified 10/07/20 08:26 Sulfa (Sulfonamide Allergy Rapid Verified 10/07/20 08:26 Antibiotics) Heart Rate hydrocodone [From Vicodin] AdvReac Hallucinati Verified 10/07/20 08:26 ons hydromorphone HCl AdvReac Rapid Verified 10/07/20 08:26 [From Dilaudid] Heart Rate magnesium AdvReac Rapid Verified 10/07/20 08:26 Heart Rate Review of Systems ROS Statement: Those systems with pertinent positive or pertinent negative responses have been documented in the HPI. ROS Other: All systems not noted in ROS Statement are negative. 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 states she has a hard time coming out of anesethia, has had PONV Past Psychological History: Anxiety Smoking Status: Never smoker Past Alcohol Use History: Occasional Past Drug Use History: None Reported - Past Family History Father Family Medical History: Coronary Artery Disease (CAD) General Exam - General Exam Comments Initial Comments: GENERAL: Patient is well-developed and well-nourished. Patient is nontoxic and in no acute distress. HEAD: Atraumatic, normocephalic. EYES: Pupils equal round and reactive to light, extraocular movements intact, sclera anicteric, conjunctiva are normal. Eyelids were unremarkable. ENT: TMs normal, nares patent, oropharynx clear without exudates. Moist mucous membranes. There is no tongue swelling, uvula is not swollen, is not erythematous, no exudates. NECK: Normal range of motion, supple without lymphadenopathy or JVD. LUNGS: Unlabored respirations. Breath sounds clear to auscultation bilaterally and equal. No wheezes rales or rhonchi. HEART: Regular rate and rhythm without murmurs, rubs or gallops. ABDOMEN: Soft, nontender, normoactive bowel sounds. MUSCULOSKELETAL: Normal extremities with adequate strength and normal range of motion, no pitting or edema. No clubbing or cyanosis. NEUROLOGICAL: Patient is alert and oriented x 3. Motor and sensory are also intact. Cranial nerves II through XII grossly intact. Symmetrical smile. Normal speech, normal gait. PSYCH: Normal mood, normal affect. SKIN: Warm, Dry, normal turgor, no rashes or lesions noted. Limitations: no limitations Course Vital Signs 10/07/20 08:21 Temperature 97.6 F Pulse Rate 93 Respiratory 18 Rate Blood Pressure 138/82 O2 Sat by Pulse 97 Oximetry Medical Decision Making - Medical Decision Making Patient is a 50-year-old female here with some discomfort of her throat and feels like her tongue is swollen. She did sprain insect repellent in her house last night before bedtime. She's also been dealing with some left-sided dental pain for the past week, she is unsure if the symptoms were related or not. On exam, she has no facial swelling, no tongue swelling that I can see, no swelling of the uvula, no erythematous of the throat. She is breathing without difficulty. I did give her dose of steroids here in the ER and the Benadryl, she does report mild improvement in her symptoms. I discussed with her that this could be a small reaction to the repellent that she sprayed last night and or could be related to possible dental infection. I will start her on antibiotics for possible dental infection, no dental abscess seen today. I will also give her a few days of steroids to continue with. She is in agreement with this plan of care. I recommended following up with her PCP. Return parameters were discussed with her and she verbalized understanding. Case discussed with Dr. Lopes. Disposition Clinical Impression: Pain, dental, Sore throat, Allergic reaction Disposition: HOME SELF-CARE Condition: Stable Instructions (If sedation given, give patient instructions): Toothache (ED) Additional Instructions: Please return to the Emergency Department if symptoms worsen or any other concerns. Take antibiotics starting today for possible dental abscess. Take steroids starting tomorrow. Follow-up with your primary care. Prescriptions: predniSONE [Deltasone] 20 mg PO DAILY #5 tab Penicillin V Potassium [Pen Vee K] 500 mg PO QID 5 Days #20 tablet Is patient prescribed a controlled substance at d/c from ED?: No Referrals: Km Sidhu MD [Primary Care Provider] - 1-2 days Time of Disposition: 10:11
== END 2020-10-07 10:41 | disposition home or self-care (01) ==
LOC: EC 08:15
DX: J02.9 Acute pharyngitis, unspecified (principal); K08.89 Other specified disorders of teeth and supporting structures; T78.40XA Allergy, unspecified, initial encounter; J45.909 Unspecified asthma, uncomplicated; G43.909 Migraine, unspecified, not intractable, without status migrainosus; Z79.1 Long term (current) use of non-steroidal anti-inflammatories (NSAID); Z86.73 Personal history of transient ischemic attack (TIA), and cerebral infarction without residual deficits; Z88.5 Allergy status to narcotic agent; Z91.040 Latex allergy status; Z88.2 Allergy status to sulfonamides; Z88.8 Allergy status to other drugs, medicaments and biological substances; Z88.6 Allergy status to analgesic agent
CPT/HCPCS: 99282; 96372; J2930

== ENCOUNTER 2020-11-15 05:11 | Emergency (ER) | payer OTHER ==
[2020-11-15 05:22] VITALS: RESP 18
[2020-11-15 07:03] LABS: Glucose,Whole Blood 96 mg/dL (75-99)
[2020-11-15] MEDS ORDERED: FLUCONAZOLE 150 MG TAB PO STA (07:17)
--- NOTE | 2020-11-15 07:20 | ED ---
ENT HPI - General Chief complaint: ENT Stated complaint: Facial Pain Time Seen by Provider: 11/15/20 05:30 Source: patient Mode of arrival: ambulatory Limitations: no limitations - History of Present Illness Initial comments: This patient is 50-year-old woman who presents with complaints that she feels she is getting some sinus pressure and pain mainly to the left frontal and left maxillary sinus areas. She also was having some ear symptoms. Patient has had a little bit of congestion, but no real postnasal drip currently. No fevers. No eye pain or change in vision. Patient had a second complaint that she had a rash to the scalp knee bilateral occipital area. MD complaint: other -: days(s) Location: L ear Severity: mild, moderate Quality: aching Consistency: constant Improves with: none Worsens with: position, other (Cough) Associated Symptoms: cough - Related Data Home Medications Medication Instructions Recorded Confirmed Acetaminophen Tab [Tylenol] 500 mg PO Q12HR PRN 05/23/18 05/23/18 Cholecalciferol [Vitamin D3] 1,000 unit PO DAILY 05/23/18 05/23/18 Ibuprofen [Motrin Ib] 400 mg PO Q8H 05/23/18 05/23/18 Previous Rx's Medication Instructions Recorded ALPRAZolam [Xanax] 0.25 mg PO Q8HR PRN 3 Days #9 tab 02/09/18 Ibuprofen [Motrin] 600 mg PO Q8HR PRN #30 tab 05/23/18 predniSONE 50 mg PO DAILY #5 tablet 05/23/18 Penicillin V Potassium [Pen Vee K] 500 mg PO QID 5 Days #20 tablet 10/07/20 predniSONE [Deltasone] 20 mg PO DAILY #5 tab 10/07/20 Amoxicillin/Potassium Clav 1 tab PO Q12HR 1 Days #14 tab 11/15/20 [Augmentin 875-125 Tablet] Allergies Allergy/AdvReac Type Severity Reaction Status Date / Time codeine Allergy Rash/Hives Verified 11/15/20 05:23 Latex, Natural Rubber Allergy Rash/Hives Verified 11/15/20 05:23 Sulfa (Sulfonamide Allergy Rapid Verified 11/15/20 05:23 Antibiotics) Heart Rate hydrocodone [From Vicodin] AdvReac Hallucinati Verified 11/15/20 05:23 ons hydromorphone HCl AdvReac Rapid Verified 11/15/20 05:23 [From Dilaudid] Heart Rate magnesium AdvReac Rapid Verified 11/15/20 05:23 Heart Rate Review of Systems ROS Statement: Those systems with pertinent positive or pertinent negative responses have been documented in the HPI. ROS Other: All systems not noted in ROS Statement are negative. Constitutional: Denies: fever, chills, weakness Eyes: Denies: eye pain, eye discharge, vision change ENT: Reports: as per HPI, ear pain, congestion. 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 states she has a hard time coming out of anesethia, has had PONV Past Psychological History: Anxiety, Depression Smoking Status: Never smoker Past Alcohol Use History: Occasional Past Drug Use History: None Reported - Past Family History Father Family Medical History: Coronary Artery Disease (CAD) General Exam Limitations: no limitations General appearance: alert, in no apparent distress Head exam: Present: atraumatic, normocephalic Eye exam: Present: normal appearance, PERRL, EOMI. Absent: scleral icterus, conjunctival injection, nystagmus, periorbital swelling, periorbital tenderness ENT exam: Present: normal oropharynx, TM's normal bilaterally, normal external ear exam Neck exam: Present: normal inspection, full ROM. Absent: tenderness, meningi smus Respiratory exam: Present: normal lung sounds bilaterally. Absent: respiratory distress, wheezes, rales, rhonchi, stridor Cardiovascular Exam: Present: regular rate, normal rhythm, normal heart sounds. Absent: systolic murmur, diastolic murmur, rubs, gallop Neurological exam: Present: alert Skin exam: Present: warm, dry, intact, rash, erythema, other (Patient does have dermatitis to the scalp to the bilateral posterior auricular areas extending towards the occipital areas. No evidence of superinfection) Course Vital Signs 11/15/20 11/15/20 05:17 08:02 Temperature 98.3 F 98.4 F Pulse Rate 114 H 102 H Respiratory 18 18 Rate Blood Pressure 137/87 139/78 O2 Sat by Pulse 97 98 Oximetry Medical Decision Making - Medical Decision Making Patient is given prescription for antibiotic for sinusitis and will switch from using antihistamine to a decongestant for a few days. Discussed appropriate follow-up and return parameters for this. In relation to the dermatitis, there may be fungal infection and she is given Diflucan here but I suspect that is more likely an eczematous dermatitis, and patient will be given medication improved to use and follow-up with dermatology. Discussed appropriate further care and return parameters. - Lab Data Lab Results 11/15/20 Range/Units 07:02 POC Glucose (mg/dL) 96 (75-99) mg/dL POC Glu Picu Nurse ID Mychal Cee Disposition Clinical Impression: Sinusitis, Eczema Disposition: HOME SELF-CARE Condition: Good Instructions (If sedation given, give patient instructions): Sinusitis (ED) Prescriptions: Amoxicillin/Potassium Clav [Augmentin 875-125 Tablet] 1 tab PO Q12HR 1 Days #14 tab Is patient prescribed a controlled substance at d/c from ED?: No Referrals: Germán Hall III, MD [Primary Care Provider] - 1-2 days Romie Colvin MD [REFERRING] - 1-2 days Eloisa Shabazz MD [STAFF PHYSICIAN] - 1-2 days
[2020-11-15 08:03] VITALS: BP 139/78; PULSE 102; TEMP 98.4
== END 2020-11-15 08:03 | disposition home or self-care (01) ==
LOC: EC 05:11
DX: J32.9 Chronic sinusitis, unspecified (principal); L30.9 Dermatitis, unspecified; J45.909 Unspecified asthma, uncomplicated; Z86.73 Personal history of transient ischemic attack (TIA), and cerebral infarction without residual deficits; Z88.2 Allergy status to sulfonamides; Z88.5 Allergy status to narcotic agent; Z91.040 Latex allergy status; Z88.8 Allergy status to other drugs, medicaments and biological substances
CPT/HCPCS: 36415; 99283

== ENCOUNTER → 2021-04-26 | Outpatient (CLI) | payer OTHER ==
--- NOTE | 2021-04-27 11:09 | MM ---
Reason for exam: screening (asymptomatic). Last mammogram was performed 1 year and 6 months ago. History: Took hormonal contraceptives for 5 years. Physical Findings: A clinical breast exam by your physician is recommended on an annual basis and results should be correlated with mammographic findings. MG 3D Screening Mammo W/Cad Bilateral CC and MLO view(s) were taken. Prior study comparison: October 29, 2019, bilateral MG 3d screening mammo w/cad. January 09, 2018, bilateral MG 3d screening mammo w/cad. There are scattered fibroglandular densities. There is no discrete abnormality. ASSESSMENT: Negative, BI-RAD 1 RECOMMENDATION: Routine screening mammogram of both breasts in 1 year.
== END | disposition home or self-care (01) ==
LOC: RADMAMWWP 09:13
PROVIDERS: ATTEND Family Medicine
DX: Z12.31 Encounter for screening mammogram for malignant neoplasm of breast (principal)
CPT/HCPCS: 77063; 77067

== ENCOUNTER → 2021-12-01 | Outpatient (CLI) | payer BC ==
[2021-12-01 18:01] LABS: Basophils # (A) 0.04 X 10*3/uL (0.00-0.10); Basophils % (A) 0.6 %; Eosinophils % (A) 1.5 %; HCT 40.3 % (37.2-46.3); HGB 12.2 g/dL (12.0-15.0); Immature Grans, Automated 0.5 %; Lymphocytes # (A) 2.35 X 10*3/uL (0.90-5.00); Lymphocytes % (A) 35.4 %; MCHC 30.3 g/dL (32.0-37.0); MCV 89.2 fL (80.0-97.0); Mean Platelet Volume 10.3 fL (9.5-12.2); NRBC Per 100 WBC 0 /100 WBCS (0.0-0.0); Neutrophils # (A) 3.72 X 10*3/uL (1.80-7.70); Platelet Count 258 X 10*3/uL (140-440); RBC 4.52 X 10*6/uL (4.10-5.20); RDW 12.5 % (11.5-14.5); WBC 6.64 X 10*3/uL (4.50-10.00)
== END | disposition home or self-care (01) ==
LOC: LABWHC1 12:47
PROVIDERS: ATTEND Internal Medicine
DX: D64.9 Anemia, unspecified (principal)
CPT/HCPCS: 36415; 85025

== ENCOUNTER → 2022-03-08 | Outpatient (CLI) | payer BC, OTHER ==
--- NOTE | 2022-03-08 09:28 | MM ---
Reason for Exam: Clinical finding. Last screening mammogram was performed 10 month(s) ago. Patient History: Menarche at age 13. First Full-Term at age 19. Premenopausal. Patient used Hormonal Contraceptives for 5 years. Last menstrual period: 06/17/2021 Risk Values: Soledad 5 year model risk: 0.7%. NCI Lifetime model risk: 6.5%. Prior Study Comparison: 12/30/2013 Screening Mammogram, [facility]. 01/09/2018 Bilateral Screening Mammogram, [facility]. 10/29/2019 Bilateral Screening Mammogram, [facility]. 04/26/2021 Bilateral Screening Mammogram, [facility]. Tissue Density: There are scattered fibroglandular densities. Findings: Analyzed By CAD. Palpable marker placed along the upper-outer quadrant of the left breast. No discrete mass, suspicious microcalcification, or other discrete abnormality is seen. No significant interval change. Overall Assessment: Incomplete: need additional imaging evaluation, BI-RAD 0 Management: Diagnostic Breast Ultrasound of the left breast. Targeted to the patient's palpable site. Electronically signed and approved by: Vimal August M.D. Radiologist
--- NOTE | 2022-03-08 09:48 | USB ---
Reason for Exam: Clinical finding. Patient History: Menarche at age 13. First Full-Term at age 19. Premenopausal. Patient used Hormonal Contraceptives for 5 years. Risk Values: Soledad 5 year model risk: 0.7%. NCI Lifetime model risk: 6.5%. Prior Study Comparison: 01/09/2018 Bilateral Screening Mammogram, [facility]. 10/29/2019 Bilateral Screening Mammogram, [facility]. 04/26/2021 Bilateral Screening Mammogram, [facility]. Findings: The upper outer quadrant of the left breast, the axilla of the left breast and the retroareolar of the left breast were scanned. Targeted ultrasound left breast upper outer quadrant 12:00 to 3:00 including the subareolar region and axilla. No solid or cystic lesion is seen with particular attention to the patient directed 3:00 palpable site. No axillary lymphadenopathy. Overall Assessment: Negative, BI-RAD 1 Management: Screening Mammogram of both breasts in 1 year. 1. Further clinical management of any suspicious palpable abnormality. Patient should continue monthly self breast exams. 2. A clinical breast exam by your physician is recommended on an annual basis. 3. This exam should not preclude additional follow-up of suspicious palpable abnormalities. Results were given to the patient verbally at the time of exam. Electronically signed and approved by: Vimal August M.D. Radiologist
== END | disposition home or self-care (01) ==
LOC: RADMAMWWP 08:43
PROVIDERS: ATTEND Family Medicine
DX: R92.8 Other abnormal and inconclusive findings on diagnostic imaging of breast (principal); N63.20 Unspecified lump in the left breast, unspecified quadrant
CPT/HCPCS: 77062; 77066

== ENCOUNTER → 2022-05-30 | Outpatient (CLI) | payer BC, OTHER ==
--- NOTE | 2022-05-30 16:36 | XR ---
EXAMINATION TYPE: XR foot complete RT DATE OF EXAM: 05/30/2022 4:30 PM INDICATION: Patient age:Female; 51 years old; Reason for study: M79.671; [facility]. COMPARISON: None TECHNIQUE: The right foot was examined in the AP, oblique, and lateral projections. FINDINGS: No evidence of any acute osseous pathology. No evidence of soft tissue swelling. Joints are preserve d. Small plantar calcaneal enthesophyte. IMPRESSION: No evidence of acute fracture.
== END | disposition home or self-care (01) ==
LOC: RADXRMAIN 16:07
PROVIDERS: ATTEND Internal Medicine
DX: M79.671 Pain in right foot (principal)

== ENCOUNTER → 2022-06-11 | Outpatient (CLI) | payer BC, OTHER ==
[2022-06-11 12:57] LABS: Basophils # (A) 0.05 X 10*3/uL (0.00-0.10); Basophils % (A) 0.8 %; Eosinophils # (A) 0.09 X 10*3/uL (0.04-0.35); Eosinophils % (A) 1.4 %; HCT 43.9 % (37.2-46.3); HGB 13.2 g/dL (12.0-15.0); Immature Grans, Automated 0.6 %; Lymphocytes # (A) 1.99 X 10*3/uL (0.90-5.00); Lymphocytes % (A) 30.3 %; MCH 26.5 pg (27.0-32.0); MCHC 30.1 g/dL (32.0-37.0); MCV 88.2 fL (80.0-97.0); Mean Platelet Volume 9.9 fL (9.5-12.2); Monocytes # (A) 0.32 X 10*3/uL (0.20-1.00); Monocytes % (A) 4.9 %; NRBC Per 100 WBC 0 /100 WBCS (0.0-0.0); Neutrophils # (A) 4.07 X 10*3/uL (1.80-7.70); Platelet Count 258 X 10*3/uL (140-440); RBC 4.98 X 10*6/uL (4.10-5.20); RDW 12.6 % (11.5-14.5); WBC 6.56 X 10*3/uL (4.50-10.00)
[2022-06-11 13:29] LABS: ALT 20 U/L (8-44); AST 14 U/L (13-35); Albumin 4.5 g/dL (3.8-4.9); Albumin/Globulin Ratio 1.48 (1.60-3.17); Alkaline Phosphatase 114 U/L (41-126); BUN/Creat Ratio 15.11 Ratio (12.00-20.00); Blood Urea Nitrogen 12.8 mg/dL (9.0-27.0); Calcium 9.5 mg/dL (8.7-10.3); Carbon Dioxide 27.8 mmol/L (20.0-27.5); Chloride 105 mmol/L (96-109); Chol/HDL Ratio 2.74 Ratio; Globulin 3.1 g/dL (1.6-3.3); Glucose 91 mg/dL (70-110); LDL Cholesterol,Calculated 120.6 mg/dL (0.0-131.0); Non-African American GFR(CKD) 80.2 (60.0-200.0); Potassium 4.1 mmol/L (3.5-5.5); Sodium 143 mmol/L (135-145); Total Protein 7.6 g/dL (6.2-8.2)
== END | disposition home or self-care (01) ==
LOC: LABWHC1 09:12
PROVIDERS: ATTEND Family Medicine
DX: Z00.01 Encounter for general adult medical examination with abnormal findings (principal); Z13.220 Encounter for screening for lipoid disorders; E55.9 Vitamin D deficiency, unspecified; L40.8 Other psoriasis; H69.81 Other specified disorders of Eustachian tube, right ear; R00.2 Palpitations; R53.83 Other fatigue
CPT/HCPCS: 36415; 80053; 80061; 82306; 82607; 84443; 85025

== ENCOUNTER → 2022-07-27 | Outpatient (CLI) | payer BC, OTHER ==
--- NOTE | 2022-07-27 13:01 | XR ---
EXAMINATION TYPE: XR chest 2V DATE OF EXAM: 07/27/2022 COMPARISON: 02/09/2018 HISTORY: Shortness of breath TECHNIQUE: Frontal and lateral views of the chest are obtained. FINDINGS: Scattered senescent parenchymal changes noted. Hyperinflation compatible with COPD. No evidence for infiltrate. No evidence for atelectasis. Heart size is stable. Mediastinal structures are stable and grossly unremarkable. No evidence for hilar prominence. Degenerative changes dorsal spine. IMPRESSION: 1. No evidence for acute pulmonary disease.
[2022-07-27 19:47] LABS: BUN/Creat Ratio 13.86 Ratio (12.00-20.00); Blood Urea Nitrogen 9.7 mg/dL (9.0-27.0); Calcium 9.4 mg/dL (8.7-10.3); Carbon Dioxide 26.5 mmol/L (21.6-31.8); Chloride 104 mmol/L (96-109); Glucose 89 mg/dL (70-110); Potassium 4.2 mmol/L (3.5-5.5); Sodium 143 mmol/L (135-145)
[2022-07-28 00:30] LABS: Basophils # (A) 0.06 X 10*3/uL (0.00-0.10); Basophils % (A) 0.6 %; Eosinophils # (A) 0.12 X 10*3/uL (0.04-0.35); Eosinophils % (A) 1.3 %; HCT 42.2 % (37.2-46.3); HGB 12.8 d/dL (12.0-15.0); Lymphocytes # (A) 3.21 X 10*3/uL (0.90-5.00); Lymphocytes % (A) 33.8 %; MCH 27.4 pg (27.0-32.0); MCHC 30.3 d/dL (32.0-37.0); MCV 90.4 FL (80.0-97.0); Mean Platelet Volume 10.6 FL (9.5-12.2); Monocytes # (A) 0.55 X 10*3/uL (0.20-1.00); Monocytes % (A) 5.8 %; NRBC Per 100 WBC 0 X 10*3/uL (0.00-0.01); Neutrophils # (A) 5.52 X 10*3/uL (1.80-7.70); Platelet Count 310 X 10*3/uL (140-440); RBC 4.67 X 10*6/uL (4.10-5.20); RDW 12.9 % (11.5-14.5); WBC 9.51 X 10*3/uL (4.50-10.00)
== END | disposition home or self-care (01) ==
LOC: RADXRMAIN 12:30
PROVIDERS: ATTEND Internal Medicine
DX: R06.02 Shortness of breath (principal); U09.9 Post COVID-19 condition, unspecified
CPT/HCPCS: 71046; 80048; 85025

== ENCOUNTER → 2022-12-16 | Outpatient (CLI) | payer BC, OTHER ==
--- NOTE | 2022-12-16 11:45 | XR ---
EXAMINATION TYPE: XR lumbar spine with bend/flex, 7 views DATE OF EXAM: 12/16/2022 Comparison: 11/14/2019 Clinical History: 52-year-old female [id number] ACUTE LEFT SIDE LOW BACK PAIN Findings: 5 lumbar type vertebral bodies. Hypertrophic facet arthropathy lower lumbar spine especially toward t he left. Vertebral body heights are preserved and alignment maintained. No subluxation identified on either flexion or extension. Impression: Facet arthropathy mid to lower lumbar spine especially toward the left. No vertebral compression noe apse or malalignment. No dynamic subluxation on flexion-extension views.
== END | disposition home or self-care (01) ==
LOC: RADXRMAIN 10:17
PROVIDERS: ATTEND Internal Medicine
DX: M47.26 Other spondylosis with radiculopathy, lumbar region (principal)
CPT/HCPCS: 72114

== ENCOUNTER → 2022-12-26 | Outpatient (CLI) | payer BC, OTHER ==
--- NOTE | 2022-12-26 10:02 | FL ---
ESOPHOGRAM. HISTORY: Dysphagia Esophagram was performed per the air contrast technique. The patient swallowed barium and effervesce nt crystals without difficulty or delay. Esophageal peristalsis and motility appear to be within normal limits. There is no evidence for filling defect, mass or diverticulum. Small reducible sliding type hiatal hernia noted. Subsequently single contrast cervical esophagram was performed which fails demonstrate evidence for a spiration penetration or mass. IMPRESSION: Small reducible sliding type hiatal hernia noted.
== END | disposition home or self-care (01) ==
LOC: RADUSWWP 08:51
PROVIDERS: ATTEND Otolaryngology
DX: R13.14 Dysphagia, pharyngoesophageal phase (principal); K44.9 Diaphragmatic hernia without obstruction or gangrene
CPT/HCPCS: 74220

== ENCOUNTER → 2023-01-04 | Outpatient (CLI) | payer BC, OTHER ==
--- NOTE | 2023-01-04 15:38 | BD ---
EXAMINATION TYPE: Axial Bone Density DATE OF EXAM: 01/04/2023 CLINICAL HISTORY: 52 years old Female. ICD-10 CODE: M85.851 DISRD OF BONE DENSITY AND STRUCTURE, Height: 62.5" Weight: 184.7lbs FRAX RISK QUESTIONS: Alcohol (3 or more units per day): No Family History (Parent hip fracture): No Glucocorticoids (More than 3mos): No (Ex: prednisone, prednisolone, methylprednisolone, dexamethasone, and hydrocortisone). History of Fracture in Adulthood: Yes, toe Secondary Osteoporosis: 1. Type 1 Diabetes: No 2. Hyperthyroidism: No 3. Menopause before 45: No 4. Malnutrition: No 5. Chronic liver disease: No Rheumatoid Arthritis: No Current Tobacco Use: No RISK FACTORS HISTORY OF: Hip Fracture (Right/Left): No Spine Fracture: No History of Wrist Fracture: No Surgery to Spine/Hip(right/left)/Wrist (right/left): No Family History of Osteoporosis: Unknow Active: Yes Diet low in dairy products/other sources of calcium: Yes Postmenopausal woman: Yes Lost more than 2 inches in height since high school: Yes Frequent falls: No Poor Health: No Hyperparathyroidism: No Adrenal Insufficiency: No MEDICATIONS: Prednisone or other steroids: No Thyroid Medications: No Osteoporosis Medications: No Additional Medications: Ibuprofen as needed, vitamin D3, multivitamin with omega Additional History: None EXAM MEASUREMENTS: Bone mineral densitometry was performed using the [employer] System. Bone mineral density as measured about the Lumbar spine is: ----- L1-L4(G/cm2): 1.031 T Score Values are as follows: ----- L1: -1.9 ----- L2: -1.5 ----- L3: -1.2 ----- L4: -0.7 ----- L1-L4: -1.2 Z Score Values are as follows: ----- L1: -2.0 ----- L2: -1.6 ----- L3: -1.4 ----- L4: -0.9 ----- L1-L4: -1.4 Baseline @MPH Bone mineral density about the R hip (g/cm2): 0.941 Bone mineral density about the L hip (g/cm2): 0.940 T Score values are as follows: -----R Neck: -1.0 -----L Neck: -1.1 -----R Total: -0.5 -----L Total: -0.5 Z Score values are as follows: -----R Neck: -0.6 -----L Neck: -0.6 -----R Total: -0.5 -----L Total: -0.5 Baseline @MPH FRAX%s: The graph provided illustrates a 4.3% chance for a major osteoporotic fx and a 0.2% chance fo r the hips probability for fx in 10 years time. IMPRESSION: Osteopenia (T Score between -2.5 and -1). There is slightly increased risk of fracture and the patient may be considered for treatment. Re-Screen 2-5 years. NOTE: T-SCORE=SD OF THE YOUNG ADULT MEAN.
== END | disposition home or self-care (01) ==
LOC: RADBDWWP 08:35
PROVIDERS: ATTEND Internal Medicine
DX: M85.89 Other specified disorders of bone density and structure, multiple sites (principal); Z78.0 Asymptomatic menopausal state
CPT/HCPCS: 77080

== ENCOUNTER → 2023-01-27 | Outpatient (CLI) | payer BC, OTHER ==
--- NOTE | 2023-01-27 18:11 | NM ---
EXAMINATION TYPE: NM parathyroid w/spect DATE OF EXAM: 01/27/2023 COMPARISON: NONE CLINICAL INDICATION: Female, 52 years old with history of E21.3 HYPERPARATHYROIDISM, UNSPECIFIED; TECHNIQUE: Following administration of 23.4 mCi Tc99m Sestamibi. Anterior projection images of the neck and ches t were obtained 10 minutes and 3 hours post injection. SPECT images of the neck and chest were obtai rosamaria and reconstructed in three axes. FINDINGS: Thyroid tracer washout: Delayed images demonstrate near-complete tracer washout from the thyroid. Parathyroid uptake: None. The two-hour delayed images do not demonstrate any focal abnormal persisten t uptake in the region of the parathyroid glands to suggest parathyroid adenoma. Normal uptake: There is physiological tracer uptake in the myocardium, liver, salivary glands, and th yroid gland. IMPRESSION: Normal parathyroid imaging study. No evidence for mediastinal uptake to suggest mediastinal parathyro id adenoma
== END | disposition home or self-care (01) ==
LOC: RADNMMAIN 10:51
PROVIDERS: ATTEND Internal Medicine
DX: E21.3 Hyperparathyroidism, unspecified (principal)
CPT/HCPCS: 78071; A9500

== ENCOUNTER → 2023-05-09 | Outpatient (CLI) | payer BC, OTHER ==
--- NOTE | 2023-05-14 12:41 | MR ---
EXAMINATION TYPE: MR lumbar spine wo con DATE OF EXAM: 05/09/2023 COMPARISON: None HISTORY: Low back pain, numbness in legs. Pain down left leg. CONTRAST: 0 mL intravenous Gadavist. TECHNIQUE: Multiplanar, multisequence images of the lumbar spine were acquired. FINDINGS: Disc heights are preserved. Vertebral body heights are preserved. Minimal disc desiccation without lo ss of disc height may be present L4-5. Remaining disc of normal hydration. No spinal canal stenosis i s present. Neural foramen are patent. Some facet degenerative change and hypertrophy is present on th e left at L5-S1. Minimal ligamentum flavum laxity is present L4-5 posterior lateral thecal sac contac t. No stenosis is present. Cord terminates at the L1-2 level. IMPRESSION: 1. Essentially unremarkable MRI lumbar spine.
== END | disposition home or self-care (01) ==
LOC: RADMRIMAIN 11:27
PROVIDERS: ATTEND Internal Medicine
DX: M47.816 Spondylosis without myelopathy or radiculopathy, lumbar region (principal); M54.42 Lumbago with sciatica, left side
CPT/HCPCS: 72148